=== PATIENT | male | born 1965 | race Caucasian/White ===

== ENCOUNTER 2019-04-03 11:43 | Inpatient (IN) | payer OTHER ==
[~2019-04-03] VITALS: Ht 170.2 cm; Wt 100.6 kg
[2019-04-03] VITALS (10 sets, daily range): BP systolic 112–141; BP diastolic 68–83
--- NOTE | ~2019-04-03 | CON ---
[facility] [address] [place] [address] CONSULTATION Name: BRENDA LUJAN Room: [address] IN M.R.#: [id number] Admission: 04/03/19 Attend Phys: Mark Angeles MD Discharge: Date of : 67 Report #: [id number] THIS REPORT FOR: //name// CC: Physician staff CAIO Angeles DATE OF SERVICE: 04/04/2019 REASON FOR CONSULTATION: CMV, thrombosis and pancytopenia. REQUESTING PHYSICIAN: Gera Antunez DO HISTORY OF PRESENT ILLNESS: The patient is a pleasant 53-year-old man with recently diagnosed iron deficiency anemia who was taking iron supplementation. Several weeks ago, he noticed to have black tarry stools. He thought that this was related to iron supplementation. Iron stopped, black tarry stools resolved. He noticed gradually worsening abdominal distention and increasing abdominal girth with worsening lower extremity edema. He does not have a primary care physician. He lives in [place], but he is a regional flatbed truck driver. He and his travel so many states. He was driving through [place] when he felt worse with increasing abdominal girth and decided to come to the hospital. 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 He had EGD done this morning. He was found to have varices, gastropathy secondary to portal hypertension. Dr. Antunez is planning to do a colonoscopy. He says the patient is very ____. In this regard, Hematology consult is requested. He is doing okay. He had paracentesis, although he feels that his abdominal girth is still large. Denies shortness of breath, has complaints of cough, which is related to allergies as he thinks. Cough is dry. No hemoptysis. He does not have complaints of abdominal pain now. He does not have melena. He had normal bowel movements today. He admits having coffee-ground emesis several weeks ago. PAST MEDICAL HISTORY: Unremarkable otherwise. He has never had a colonoscopy before. SOCIAL HISTORY: He lives in [place]. He sees physician rehab assistant in urgent care, sometimes. He is a regional flatbed truck driver. He does not smoke currently. He does not have significant history of smoking. He does not drink alcohol. . Has a very supportive . FAMILY HISTORY: Positive for DVTs in his father. PHYSICAL EXAMINATION: GENERAL: Reveals obese man, not in acute distress. VITAL SIGNS: Blood pressure 104/62, heart rate is 119, temperature 98.4 and [facility] [address] [place] [address] CONSULTATION Name: BRENDA LUJAN Room: [address] IN [facility]#: [id number] Admission: 04/03/19 Attend Phys: Mark Angeles MD Discharge: Date of : 67 Report #: [id number] respirations 18. HEENT: Does not reveal icterus. NECK: Supple. There is no supraclavicular or axillary lymphadenopathy. HEART: Normal S1, S2. LUNGS: Clear. ABDOMEN: Distended, nontender. LOWER EXTREMITIES: No edema. SKIN: Does not reveal any petechiae or rash. MENTAL STATUS: Alert and oriented x 3. LABORATORY DATA: White count 2.7, hemoglobin 7.8, platelets 87, MCV 86.0 and RDW 17.0. Sodium 143, potassium 4.2, BUN 15, creatinine 1.1, total bilirubin 1.0, ALT 34, alkaline phosphatase 106, AST is 32. Serum iron 17, TIBC 333, iron saturation 5%. Ferritin 12, folate 10.4. Vitamin B is 357. RADIOLOGY: CT scan of abdomen reviewed. ASSESSMENT AND PLAN: 1. Pancytopenia secondary to portal hypertension and hypersplenism. Continue to monitor. Transfuse packed red blood cells as needed. 2. Gastrointestinal bleeding and agree with gastrointestinal workup. 3. Iron deficiency. The patient never had a gastrointestinal workup until this admission. EGD has been done and I agree with colonoscopy. 4. Superior mesenteric artery thrombosis. Dr. Antunez said the patient is at very high risk of bleeding and anticoagulation is contraindicated. I am planning to order hypercoagulable workup and the patient's condition is more stable and gastrointestinal workup is completed. Consider systemic anticoagulation with initially heparin and change to oral anticoagulation later. Thank you very much for allowing me to participate in the care of this patient. By: [id number] [id number] Llanes MD /nt
[2019-04-03 12:28] LABS: ABSOLUTE EOSINOPHILS 0.1 thou/uL (0.0-0.7); ABSOLUTE LYMPHOCYTES 0.5 thou/uL (0.8-5.3); ABSOLUTE MONOCYTES 0.3 thou/uL (0.0-1.2); ABSOLUTE NEUTROPHILS 1.6 thou/uL (1.6-8.1); BASOPHILS 1.5 %; EOSINOPHILS 4.4 %; HEMATOCRIT 21.7 % (42.0-52.0); LYMPHOCYTES 20.1 %; MCH 27.8 pg (26.0-34.0); MCHC 32.3 g/dL (28.0-37.0); MCV 85.9 fL (80.0-100.0); MONOCYTES 12.5 %; MPV 8.5 fl. (7.2-11.1); NUCLEATED RBCS 0 /100WBC; PLATELET COUNT* 81 thou/uL (150-400); POLYS 61.5 %; RBC 2.52 mil/uL (4.50-6.00); WBC 2.6 thou/uL (4.0-11.0)
[2019-04-03 12:38] LABS: ANION GAP 8 mmol/L (7-16); BUN 17 mg/dL (7-18); CHLORIDE 105 mmol/L (98-107); CO2 27 mmol/L (21-32); CREATININE 1.2 mg/dL (0.6-1.3); GLUCOSE 196 mg/dL (70-99); POTASSIUM 3.9 mmol/L (3.5-5.1); SODIUM 140 mmol/L (136-145)
[2019-04-03 12:48] LABS: ALBUMIN 2.9 g/dL (3.4-5.0); ALKALINE PHOSPHATASE 128 U/L (46-116); LIPASE 160 U/L (73-393); NT-PRO BRAIN NAT PEPTIDE 43 pg/mL (<300); SGOT 33 U/L (15-37); SGPT 37 U/L (30-65); TOTAL BILIRUBIN 0.6 mg/dL (<0.1-1.0); TROPONIN-I LEVEL <0.06 ng/mL (<0.06)
[2019-04-03 14:45] LABS: APTT 24.7 Seconds (25.0-31.3); INR 1.1; PROTIME 11.2 Seconds (9.20-11.50)
[2019-04-03 21:32] LABS: ABSOLUTE EOSINOPHILS 0.1 thou/uL (0.0-0.7); ABSOLUTE LYMPHOCYTES 0.6 thou/uL (0.8-5.3); ABSOLUTE MONOCYTES 0.4 thou/uL (0.0-1.2); ABSOLUTE NEUTROPHILS 1.4 thou/uL (1.6-8.1); BASOPHILS 0.8 %; EOSINOPHILS 4.5 %; HEMATOCRIT 23.1 % (42.0-52.0); HEMOGLOBIN 7.6 gm/dL (14.0-18.0); LYMPHOCYTES 24.3 %; MCH 28.3 pg (26.0-34.0); MCHC 32.9 g/dL (28.0-37.0); MCV 85.9 fL (80.0-100.0); MONOCYTES 14.5 %; NUCLEATED RBCS 0 /100WBC; PLATELET COUNT* 78 thou/uL (150-400); POLYS 55.9 %; RBC 2.69 mil/uL (4.50-6.00); RDW-CV 17.2 % (10.5-14.5); WBC 2.5 thou/uL (4.0-11.0)
[2019-04-04] VITALS (11 sets, daily range): BP systolic 100–149; BP diastolic 58–85
[2019-04-04 04:24] LABS: ABSOLUTE EOSINOPHILS 0.1 thou/uL (0.0-0.7); ABSOLUTE LYMPHOCYTES 0.5 thou/uL (0.8-5.3); ABSOLUTE MONOCYTES 0.3 thou/uL (0.0-1.2); ABSOLUTE NEUTROPHILS 1.7 thou/uL (1.6-8.1); BASOPHILS 0.5 %; EOSINOPHILS 5.1 %; HEMATOCRIT 22.9 % (42.0-52.0); HEMOGLOBIN 7.8 gm/dL (14.0-18.0); MCH 29.3 pg (26.0-34.0); MONOCYTES 12.4 %; NUCLEATED RBCS 0 /100WBC; PLATELET COUNT* 86 thou/uL (150-400); RBC 2.67 mil/uL (4.50-6.00); WBC 2.7 thou/uL (4.0-11.0)
[2019-04-04 04:36] LABS: ALBUMIN 3.2 g/dL (3.4-5.0); CALCIUM 7.4 mg/dL (8.5-10.1); CREATININE 1.1 mg/dL (0.6-1.3); POTASSIUM 4.2 mmol/L (3.5-5.1); TOTAL PROTEIN 6.2 g/dL (6.4-8.2)
[2019-04-04 12:20] LABS: BF RBC <1000 /mm3; TOTAL CELL COUNT 127 /mm3
[2019-04-04 12:25] LABS: CLARITY SLIGHTLY HAZY; TOTAL VOLUME 5460 ml
[2019-04-04 13:13] LABS: BF LYMPHOCYTES 17 %; BF POLYS 81 %; BF TISSUE 57 /100 WBC; BODY FLUID BANDS 2 %
[2019-04-04 14:02] LABS: SOURCE ASCITES
[2019-04-04 14:13] LABS: BF MONOCYTES 0 %
[2019-04-04 15:08] LABS: IgG 990 mg/dL (700-1600); IgM 93 mg/dL (20-172)
[2019-04-04 23:05] LABS: HEPATITIS B SURFACE AG Negative (Negative)
[2019-04-05] VITALS (11 sets, daily range): BP systolic 123–145; BP diastolic 67–86
[2019-04-05 03:48] LABS: ABSOLUTE EOSINOPHILS 0.1 thou/uL (0.0-0.7); ABSOLUTE LYMPHOCYTES 0.7 thou/uL (0.8-5.3); ABSOLUTE MONOCYTES 0.4 thou/uL (0.0-1.2); ABSOLUTE NEUTROPHILS 1.7 thou/uL (1.6-8.1); BASOPHILS 0.9 %; EOSINOPHILS 4.2 %; HEMATOCRIT 22.1 % (42.0-52.0); HEMOGLOBIN 7.3 gm/dL (14.0-18.0); LYMPHOCYTES 23.9 %; MCH 28.2 pg (26.0-34.0); MCHC 33.1 g/dL (28.0-37.0); MCV 85.4 fL (80.0-100.0); MONOCYTES 13.5 %; MPV 8.8 fl. (7.2-11.1); NUCLEATED RBCS 0 /100WBC; PLATELET COUNT* 82 thou/uL (150-400); POLYS 57.5 %; RBC 2.59 mil/uL (4.50-6.00); RDW-CV 17.5 % (10.5-14.5); WBC 2.9 thou/uL (4.0-11.0)
[2019-04-05 04:10] LABS: CALCIUM 7.5 mg/dL (8.5-10.1); POTASSIUM 4.2 mmol/L (3.5-5.1); TOTAL BILIRUBIN 0.6 mg/dL (<0.1-1.0); TOTAL PROTEIN 5.8 g/dL (6.4-8.2)
[2019-04-05 10:09] LABS: IgA 208 mg/dL (90-386); IgM 96 mg/dL (20-172)
[2019-04-05 11:06] LABS: IgG 1005 mg/dL (700-1600)
[2019-04-05 12:07] LABS: ANA INTERPRETATION Negative (Negative)
[2019-04-05 13:08] LABS: BODY FLUID PROTEIN 0.6 g/dL (())
--- NOTE | 2019-04-05 13:49 | 2DMMODE ---
[place] [address] 2 D/M-MODE ECHOCARDIOGRAM Name: BRENDA LUJAN Room: [address] IN [facility]#: [id number] Admission: 04/03/19 Attend Phys: Mark Angeles MD Discharge: Date of : 67 Date of Service: 04/05/19 1348 Report #: [id number] THIS REPORT FOR: //name// APPROVED REPORT Study performed: 04/05/2019 10:56:32 EXAM: Comprehensive 2D, Doppler, and color-flow Echocardiogram Patient Location: In-Patient Room #: [facility] Status: routine BSA: 2.10 HR: 88 bpm BP: 128/72 mmHg Rhythm: NSR Other Information Study Quality: Good Indications rule out thrombus 2D Dimensions IVSd: 10.75 (7-11mm) LVOT Diam: 21.51 (18-24mm) LVDd: 49.04 mm PWd: 8.96 (7-11mm) Ascending Ao: 30.53 (22-36mm) LVDs: 30.00 (25-40mm) Aortic Root: 30.53 mm Volumes Left Atrial Volume (Systole) LA ESV Index: 24.90 mL/m2 Aortic Valve AoV Peak Maikol.: 1.47 m/s AO Peak Gr.: 8.68 mmHg LVOT Max P.60 mmHg AO Mean Gr.: 4.48 mmHg LVOT Mean P.85 mmHg LVOT Max V: 1.47 m/s AO V2 VTI: 26.76 cm LVOT Mean V: 0.89 m/s EZEKIEL (VTI): 3.68 cm2 LVOT V1 VTI: 27.11 cm Mitral Valve E/A Ratio: 1.39 MV Decel. Time: 192.69 ms MV E Max Maikol.: 0.93 m/[place] [address] 2 D/M-MODE ECHOCARDIOGRAM Name: BRENDA LUJAN Room: [address] IN [facility].#: [id number] Admission: 04/03/19 Attend Phys: Mark Angeles MD Discharge: Date of : 67 Date of Service: 04/05/19 1348 Report #: [id number] MV PHT: 55.88 ms MVA (PHT): 3.94 cm2 TDI E/Lateral E': 6.64 E/Medial E': 9.30 Medial E' Maikol.: 0.10 m/s Lateral E' Maikol.: 0.14 m/s Pulmonary Valve PV Peak Maikol.: 1.14 m/s PV Peak Gr.: 5.17 mmHg Tricuspid Valve RAP Estimate: 5.00 mmHg TR Peak Gr.: 28.05 mmHg RVSP: 33.00 mmHg PA Pressure: 33.00 mmHg Left Ventricle The left ventricle is normal size. There is normal LV segmental wall motion. There is normal left ventricular wall thickness. Left ventricular systolic function is normal. The left ventricular ejection fraction is within the normal range. LVEF is 60-65%. The left ventricular diastolic function is normal. Right Ventricle The right ventricle is normal size. The right ventricular systolic function is normal. Atria The left atrium size is normal. The right atrium size is normal. Aortic Valve The aortic valve is normal in structure. No aortic regurgitation is present. There is no aortic valvular stenosis. Mitral Valve The mitral valve is normal in structure. Trace mitral regurgitation. No evidence of mitral valve stenosis. Tricuspid Valve The tricuspid valve is normal in structure. Trace tricuspid regurgitation. Mild pulmonary hypertension. Pulmonic Valve The pulmonary valve is normal in structure. There is no pulmonic [place] [address] 2 D/M-MODE ECHOCARDIOGRAM Name: BRENDA LUJAN Room: [address] IN [facility]#: [id number] Admission: 04/03/19 Attend Phys: Mark Angeles MD Discharge: Date of : 67 Date of Service: 04/05/19 1348 Report #: [id number] Great Vessels The aortic root is normal in size. IVC is normal in size and collapses >50% with inspiration. Pericardium There is no pericardial effusion. <Conclusion> The left ventricle is normal size. There is normal left ventricular wall thickness. Left ventricular systolic function is normal. The left ventricular ejection fraction is within the normal range. LVEF is 60-65%. The left ventricular diastolic function is normal. The right ventricle is normal size. The left atrium size is normal. The aortic valve is normal in structure. The mitral valve is normal in structure. Trace mitral regurgitation. The tricuspid valve is normal in structure. Trace tricuspid regurgitation. Mild pulmonary hypertension. IVC is normal in size and collapses >50% with inspiration. There is no pericardial effusion. There is normal LV segmental wall motion. <ELECTRONICALLY SIGNED> By: Nehemias Sheffield MD, FACC 04/05/19 1348 1348 1348 Nehemias Sheffield MD, FACC /INF
--- NOTE | 2019-04-05 14:48 | EKG ---
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
[2019-04-06] VITALS: BP 126/73
[2019-04-06 04:00] VITALS: BP 120/71
[2019-04-06 04:38] LABS: HEMATOCRIT 22.8 % (42.0-52.0); HEMOGLOBIN 7.6 gm/dL (14.0-18.0); MCH 28.4 pg (26.0-34.0); MCHC 33.2 g/dL (28.0-37.0); MCV 85.6 fL (80.0-100.0); MPV 9.2 fl. (7.2-11.1); RBC 2.66 mil/uL (4.50-6.00); RDW-CV 17.5 % (10.5-14.5)
[2019-04-06 04:48] LABS: INR 1.2; PROTIME 12.2 Seconds (9.20-11.50)
[2019-04-06 04:54] LABS: ALBUMIN 2.9 g/dL (3.4-5.0); CREATININE 1.1 mg/dL (0.6-1.3); POTASSIUM 3.7 mmol/L (3.5-5.1); TOTAL BILIRUBIN 0.5 mg/dL (<0.1-1.0); TOTAL PROTEIN 5.8 g/dL (6.4-8.2)
[2019-04-06 08:00] VITALS: BP 127/77
[2019-04-06 14:10] LABS: GLYCOHEMOGLOBIN (HGB A1C) 5.6 % (4.8-5.6)
[2019-04-06 16:00] VITALS: BP 125/69
--- NOTE | 2019-04-06 17:06 | PATH ---
[address] [address] PATHOLOGY RPT PROCEDURE Name: BRENDA LUJAN Room: [address] IN [facility]#: [id number] Admission: 04/03/19 Date of : 67 Discharge: Report #: [id number] Path Case #: [id number] Note [facility] Accession Number: [id number] TESTS RESULT FLAG UNITS REF RANGE LAB Clinician Provided Cytology Information No. of containers..01 Other (Miscellaneous) Source: ABDOMINAL FLUID DIAGNOSIS: 02 ABDOMINAL FLUID NEGATIVE FOR MALIGNANT CELLS. REACTIVE MESOTHELIAL CELLS ARE PRESENT. THIS INTERPRETATION INCLUDES EVALUATION OF A CELL BLOCK. Signed out by: 02 Michi Cardoza MD, Pathologist NPI- [id number] Performed by: 01 Varsha Lim, Plant Scientist ([facility]) Gross description: 01 30ML, PINK, CLOUDY /LCS FLAG LEGEND: L-Low Normal,H-High Normal,LL-Alert Low,HH-Alert High <-Panic Low,>-Panic High,A-Abnormal,AA-Critical Abnormal Performed at: [address] [place] [address] Tito Cartagena MD, [address] [place] [phone] Devin Quiñonez MD, Specimen Comment: A courtesy copy of this report has been sent to Specimen Comment: [phone], . Specimen Comment: Report sent to / DR DAVILA Specimen Comment: A duplicate report has been generated due to demographic updates. Performed at: [address], [place], [place] [id number] MD Tito Cartagena MD Phone: [phone]
[2019-04-06 19:43] VITALS: BP 117/69
[2019-04-07] VITALS: BP 100/63
[2019-04-07 01:52] LABS: URINE BILIRUBIN NEGATIVE (Negative); URINE BLOOD 3+ (Negative); URINE CLARITY CLEAR; URINE COLOR STRAW; URINE GLUCOSE-RANDOM NEGATIVE (Negative); URINE KETONES NEGATIVE (Negative); URINE LEUKOCYTES-REFLEX NEGATIVE (Negative); URINE NITRITE-REFLEX NEGATIVE (Negative); URINE PROTEIN NEGATIVE (Negative); URINE UROBILINOGEN 0.2 E.U./dl (0.2-1.0)
[2019-04-07 02:52] LABS: CASTS None Seen /LPF (None Seen); SQUAMOUS 0-3 Few /LPF (0-3); URINE WBC-REFLEX 0-5 Rare /HPF (0-5)
[2019-04-07 02:53] LABS: BACTERIA-REFLEX None Seen /HPF (None Seen); CRYSTALS None Seen /LPF (None Seen)
[2019-04-07 04:00] VITALS: BP 103/66
[2019-04-07 12:00] VITALS: BP 122/64
[2019-04-07 12:43] LABS: ABSOLUTE EOSINOPHILS 0.1 thou/uL (0.0-0.7); ABSOLUTE LYMPHOCYTES 0.5 thou/uL (0.8-5.3); ABSOLUTE MONOCYTES 0.4 thou/uL (0.0-1.2); ABSOLUTE NEUTROPHILS 2.7 thou/uL (1.6-8.1); BASOPHILS 0.4 %; EOSINOPHILS 1.5 %; HEMATOCRIT 27.3 % (42.0-52.0); LYMPHOCYTES 14.5 %; MCH 28.3 pg (26.0-34.0); MCV 85.9 fL (80.0-100.0); MONOCYTES 11.4 %; MPV 8.6 fl. (7.2-11.1); NUCLEATED RBCS 0 /100WBC; PLATELET COUNT* 96 thou/uL (150-400); POLYS 72.2 %; RBC 3.17 mil/uL (4.50-6.00); RDW-CV 17.7 % (10.5-14.5); WBC 3.8 thou/uL (4.0-11.0)
[2019-04-07 13:00] LABS: CALCIUM 8.6 mg/dL (8.5-10.1); CREATININE 1.3 mg/dL (0.6-1.3); POTASSIUM 3.4 mmol/L (3.5-5.1)
[2019-04-07] MEDS ORDERED: SPIRONOLACTONE25 MG PO (14:08)
[2019-04-07] MEDS ORDERED: NEXIUM40 MG PO (14:09)
[2019-04-07] MEDS ORDERED: POTASSIUM20 PO (14:09)
[2019-04-07] MEDS ORDERED: LASIX 40 MG TAB40 M2 PO (14:09)
[2019-04-07] MEDS ORDERED: CARAFATE 11 GM/10 M1 PO (14:09)
[2019-04-07 16:00] VITALS: BP 114/69
[2019-04-07 18:38] VITALS: BP 114/69
[2019-04-08 18:30] LABS: SOURCE ABDOMINAL
--- NOTE | 2019-04-09 14:05 | PATH ---
[facility] [address] [place] [address] PATHOLOGY RPT PROCEDURE Name: BRENDA CHAIREZ Room: [address] IN M.R.#: [id number] Admission: 04/03/19 Date of : 67 Discharge: 04/07/19 Report #: [id number] Path Case #: [id number] [facility] Accession Number: [id number] . 01 Material submitted: . PART A: sigmoid colon - SIGMOID COLON POLYP AT 30CM. Modifiers: 30CM PART B: sigmoid colon - DISTAL SIGMOID COLON POLYP AT 20CM. Modifiers: distal PART C: rectum - PROXIMAL RECTAL POLYP. Modifiers: proximal . 01 Clinical history: . Colonoscopy . 02 Diagnosis: A. Colon, sigmoid, biopsy: - Adenomatous polyp. . B. Colon, distal sigmoid at 20 cm, biopsy: - Hyperplastic polyp with focal ulceration and acute and chronic inflammation. . C. Colon, proximal rectum, biopsy: - Hyperplastic polyp with cautery artifact and focal ulceration with acute and chronic inflammation. (SKM:katarzyna 04/08/2019) QMS/04/08/2019 . 02 Electronically signed: . Michi Cardoza MD, Pathologist NPI- [id number] . 01 Gross description: . A. The specimen is received in formalin, labeled "Brenda Chairez, sigmoid colon polyp at 30 cm", is a mayes, rubbery sessile polyp measuring 0.8 x 0.7 x 0.25 cm. The margin is inked black, trisected and entirely submitted in A1. . B. The specimen is received in formalin, labeled "Brenda Chairez, distal sigmoid colon polyp at 20 cm", are two mayes soft tissue fragments measuring 0.5 x 0.2 and 0.6 x 0.3 cm, entirely submitted in B1. . C. The specimen is received in formalin, labeled "Brenda Chairez, proximal rectal polyp", are few mayes soft tissue fragments measuring 0.4 x 0.4 x 0.1 cm in aggregate, entirely submitted in C1. . ([facility]; 04/07/2019) [facility] . [address] [place] [address] PATHOLOGY RPT PROCEDURE Name: LEBRENDA Room: [address] IN M.R.#: [id number] Admission: 04/03/19 Date of : 67 Discharge: 04/07/19 Report #: [id number] Path Case #: [id number] Pathologist provided ICD-10: D12.5, K63.5, K62.1, K62.89, K62.6 . 02 CPT . 291655, 306614, 253948 Specimen Comment: A courtesy copy of this report has been sent to Specimen Comment: [phone], . Specimen Comment: Report sent to / DR DAVILA Performed at: 01 [facility] [address] [place] [address] [id number] MD Tito Cartagena MD Phone: [phone] Performed at: [address] [id number] MD Brandon Becerra MD Phone: [phone]
== END 2019-04-07 19:10 | disposition home or self-care (01) | DRG 432 ==
LOC: M.ERS 11:43 → M.TBA-ER 14:21 → M.ICU 14:21 → M.2W 04-05 18:19
PROVIDERS: Emergency Medicine Emergency Medical Services; Internal Medicine Gastroenterology; Internal Medicine Hematology & Oncology; Nurse Practitioner Adult Health; ADMIT Family Medicine
PROC: 30233N1 Transfusion of Nonautologous Red Blood Cells into Peripheral Vein, Percutaneous Approach (ICD-10-PCS; principal; 2019-04-03)
PROC: 06L38CZ Occlusion of Esophageal Vein with Extraluminal Device, Via Natural or Artificial Opening Endoscopic (ICD-10-PCS; 2019-04-04)
PROC: 0W9G3ZZ Drainage of Peritoneal Cavity, Percutaneous Approach (ICD-10-PCS; 2019-04-04)
PROC: 0DBP8ZZ Excision of Rectum, Via Natural or Artificial Opening Endoscopic (ICD-10-PCS; 2019-04-06)
PROC: 0W9G3ZZ Drainage of Peritoneal Cavity, Percutaneous Approach (ICD-10-PCS; 2019-04-06)
PROC: 0DBN8ZZ Excision of Sigmoid Colon, Via Natural or Artificial Opening Endoscopic (ICD-10-PCS; 2019-04-06)
DX: K74.60 Unspecified cirrhosis of liver (principal); I85.11 Secondary esophageal varices with bleeding; I81 Portal vein thrombosis; D61.818 Other pancytopenia; K76.6 Portal hypertension; R18.8 Other ascites; D69.6 Thrombocytopenia, unspecified; K31.89 Other diseases of stomach and duodenum; D73.1 Hypersplenism; E11.9 Type 2 diabetes mellitus without complications; K75.81 Nonalcoholic steatohepatitis (NASH); K64.4 Residual hemorrhoidal skin tags; K72.90 Hepatic failure, unspecified without coma; D12.5 Benign neoplasm of sigmoid colon; K62.1 Rectal polyp; Z88.8 Allergy status to other drugs, medicaments and biological substances; Z84.89 Family history of other specified conditions